=== PATIENT | female | born 1970 | race Two or more races ===

== ENCOUNTER → 2025-09-17 | Outpatient (CLI) | payer OTHER, SELFPAY ==
--- NOTE | 2025-09-16 17:05 | LES_PTH ---
PATIENT: LAWSON OLGUIN LOC: [facility] U#:[id number] AGE/SX: 55/F ROOM: RE09/17/[address]: Dr. Shawnee Dave MD : 1970 BED: DIS: 09/17/2025 SPEC #: [id number] RECD: 09/17/25 09:56 STATUS: CORTEZ RERodney #: [id number] RAUL: 09/16/25 17:[address]: Nuno Dave DEPT: SURGICAL PATHOLOGY RECD BY: Osiel Lang ENTERED: 09/17/25 10:38 SP TYPE: Lesion OTHR DR: Dr. 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 Right lower eyelid, "lesion", excision: * Nondiagnostic. * No tissue is recovered after processing. MICROSCOPIC DESCRIPTION Slides are reviewed. GROSS DESCRIPTION A. Received in formalin labeled with the patient's name and date of . Designated as " RLL" are 2-minute flecks of apparent tissue, both measuring <0.1 cm. Entirely submitted in 1 cassette. Specimen may not survive processing. [place] 09/17/2025PT:[id number]
== END | disposition home or self-care (01) ==
LOC: LABSPEC 10:23
PROVIDERS: Referring Provider Family Medicine; Visit Provider Family Medicine
DX: H02.9 Unspecified disorder of eyelid (principal)
CPT/HCPCS: 88305